=== PATIENT | female | born 1955 | race Caucasian/White ===

== ENCOUNTER → 2016-11-29 | Outpatient (CLI) | payer BC ==
--- NOTE | 2016-11-29 10:10 | KCIC ---
EXAM: Thoracic spine, 3 views. HISTORY: Pain. COMPARISON: None. FINDINGS: Frontal, lateral and swimmer's views of the thoracic spine are obtained. There is mild thoracic dextroscoliosis. There is no listhesis. The vertebral bodies are normal in height and the disc spaces are preserved. No segmentation anomaly is seen. IMPRESSION: 1. Mild thoracic scoliosis. 2. No acute osseous finding. Electronically signed by: Jillian Wilcox MD (11/29/2016 10:07 AM) [id number]
== END | disposition home or self-care (01) ==
LOC: KCIC 09:35
PROVIDERS: ATTEND Physician Assistant
DX: M41.84 Other forms of scoliosis, thoracic region (principal)
CPT/HCPCS: 72072

== ENCOUNTER → 2017-06-29 | Outpatient (CLI) | payer BC | END | disposition home or self-care (01) | LOC: KCIC 11:08 | DX: S39.92XD Unspecified injury of lower back, subsequent encounter (principal); X58.XXXD Exposure to other specified factors, subsequent encounter | CPT/HCPCS: 72220 ==